=== PATIENT | female | born 1950 | race Caucasian/White ===

== ENCOUNTER 2024-05-04 14:55 | Day surgery (SDC) | payer MEDICARE, OTHER ==
[2024-05-04] MEDS ORDERED: Xylocaine-Mpf 2% 5 Ml Vial IJ ONE (14:56)
[2024-05-04] MEDS ORDERED: Decadron 4 MG INJ IV ONE (14:56)
[2024-05-04] MEDS ORDERED: DIPRIVAN 200 MG/20 ML IV ONE (17:08)
--- NOTE | 2024-05-04 20:53 | XRAY ---
Indication: Right C2-C4 MBB. Intraoperative fluoroscopy provided for 10 second. 2 digital spot image submitted for interpretation demonstrates posterior needle tips projecting over expected right C2-C4 nerve roots. Correlate with intraoperative findings/report.
--- NOTE | 2024-05-05 09:10 | XRAY ---
10 seconds of fluoroscopy was used in surgery for a right C2-C4 MBB.
== END 2024-05-04 17:37 ==
LOC: SDC-PAIN 14:55
PROVIDERS: ATTEND Psychiatry & Neurology Pain Medicine
DX: M47.812 Spondylosis without myelopathy or radiculopathy, cervical region (principal)
CPT/HCPCS: 64490; 64491; 72040; 77002; J1100; J2704

== ENCOUNTER 2024-06-30 09:55 | Day surgery (SDC) | payer MEDICARE, OTHER ==
[2024-06-30] MEDS ORDERED: BUPIVACAINE 0.5% VIAL IJ ONE (09:56)
[2024-06-30] MEDS ORDERED: dexAMETHasone sodium phosphate IJ ONE (09:56)
[2024-06-30] MEDS ORDERED: propofoL IV ONE (11:34)
--- NOTE | 2024-06-30 12:26 | XRAY ---
Indication: Right C2-C4 MBB. Intraoperative fluoroscopy provided for 23 seconds. 2 digital spot image submitted for interpretation demonstrates posterior needle tips projecting over expected right C2-C4 nerve roots. Correlate with intraoperative findings/report.
--- NOTE | 2024-06-30 13:45 | XRAY ---
23 seconds of fluoroscopy was used in surgery for a right C2-C4 MBB.
== END 2024-06-30 12:15 | disposition home or self-care (01) ==
LOC: SDC-PAIN 09:55
PROVIDERS: ATTEND Psychiatry & Neurology Pain Medicine
DX: M47.812 Spondylosis without myelopathy or radiculopathy, cervical region (principal)
CPT/HCPCS: 64490; 64491; 72040; 77002; J1100; J2704

== ENCOUNTER 2024-09-07 06:33 | Day surgery (SDC) | payer MEDICARE, OTHER ==
[2024-09-07] MEDS ORDERED: LIDOCAINE HCL 1% AMPUL 5 ML IJ ONE (06:34)
[2024-09-07] MEDS ORDERED: BUPIVACAINE 0.5% VIAL IJ ONE (06:34)
[2024-09-07] MEDS ORDERED: dexAMETHasone sodium phosphate IJ ONE (06:34)
[2024-09-07] MEDS ORDERED: Lactated Ringers 500 ML IV ONE (06:57)
[2024-09-07] MEDS ORDERED: propofoL IV ONE (08:31)
[2024-09-07] MEDS ORDERED: Sodium Chloride 0.9% 1000 ML 1,000 ML ONE (10:29)
--- NOTE | 2024-09-07 12:30 | XRAY ---
Indication: Right C2-C4 RFA. Intraoperative fluoroscopy provided for 16 seconds. 2 digital spot images submitted for interpretation demonstrates posterior needle tips projecting over expected right C2-C4 nerve roots. Correlate with intraoperative findings/report.
--- NOTE | 2024-09-07 12:55 | XRAY ---
16 seconds of fluoroscopy was used in surgery for a right C2-C4 RFA.
== END 2024-09-07 08:55 | disposition home or self-care (01) ==
LOC: SDC-PAIN 06:33
PROVIDERS: ATTEND Psychiatry & Neurology Pain Medicine
DX: M47.812 Spondylosis without myelopathy or radiculopathy, cervical region (principal)
CPT/HCPCS: 64633; 64634; 72040; 77002; 99100; J1100; J2704